=== PATIENT | male | born 1970 ===

== ENCOUNTER 2023-09-11 23:13 | Outpatient (CLI) | payer OTHER | END 2023-09-11 23:14 | disposition EMS.NT | LOC: EMS 23:13 | DX: R55 Syncope and collapse (principal); R51.9 Headache, unspecified ==

== ENCOUNTER 2023-09-14 09:04 | Outpatient (CLI) | payer BC ==
[2023-09-14 12:10] LABS: BASOPHILS % (AUTO) 0.3 %; EOSINOPHILS # (AUTO) 0.3 10^3/uL (0.0-0.7); EOSINOPHILS % (AUTO) 3.8 %; HCT - HEMATOCRIT 48.6 % (42.0-52.0); HGB - HEMOGLOBIN 15.9 g/dL (14.0-18.0); LYMPHOCYTES # (AUTO) 2.2 10^3/uL (1.5-3.5); LYMPHOCYTES % (AUTO) 33.9 %; MEAN CORPUSCULAR HEMOGLOBIN 30.6 pg (27.0-31.0); MEAN CORPUSCULAR HGB CONC 32.7 g/dL (32.0-36.0); MEAN CORPUSCULAR VOLUME 93.6 fL (80.0-94.0); MEAN PLATELET VOLUME 10.6 fL (7.4-11.4); MONOCYTES # (AUTO) 0.7 10^3/uL (0.0-1.0); MONOCYTES % (AUTO) 9.8 %; NEUTROPHILS # (AUTO) 3.4 10^3/uL (1.5-6.6); NEUTROPHILS % (AUTO) 51.7 %; PLT - PLATELET COUNT 281 10^3/uL (130-450); RED BLOOD COUNT 5.19 10^6/uL (4.70-6.10); RED CELL DISTRIBUTION WIDTH 12.7 % (12.0-15.0); WHITE BLOOD COUNT 6.6 x10^3/uL (4.8-10.8)
[2023-09-14 12:40] LABS: THYROID STIMULATING HORMONE 2.63 uIU/mL (0.34-5.60)
[2023-09-14 12:41] LABS: ALBUMIN 4.2 g/dL (3.2-5.5); ALBUMIN/GLOBULIN RATIO 1.6 (1.0-2.2); ALKALINE PHOSPHATASE 32 IU/L (42-121); ALT ALANINE AMINOTRANSFERASE 21 IU/L (10-60); AST ASPARTATE AMINOTRANSFERASE 18 IU/L (10-42); BILIRUBIN,TOTAL 0.6 mg/dL (0.2-1.0); BUN - BLOOD UREA NITROGEN 18 mg/dL (6-20); CALCIUM 9.5 mg/dL (8.5-10.3); CARBON DIOXIDE - CO2 26 mmol/L (21-32); CHLORIDE 107 mmol/L (101-111); CHOL/HDL RATIO 4.6 (<5.0); CHOLESTEROL 190 mg/dL; GFR - MDRD 78 (>89); GLUCOSE 93 mg/dL (74-104); HDL CHOLESTEROL 41 mg/dL; LDL CHOLESTEROL,CALCULATED 135 mg/dL; LDL/HDL RATIO 3.3 (<3.6); SODIUM 138 mmol/L (135-145); TOTAL PROTEIN 6.8 g/dL (6.4-8.9); TRIGLYCERIDES 72 mg/dL (48-352); VLDL CHOLESTEROL 14 mg/dL
== END 2023-09-14 09:05 | disposition home or self-care (01) ==
LOC: LAB.N 09:04
PROVIDERS: ATTEND Nurse Practitioner
DX: I10 Essential (primary) hypertension (principal); E66.9 Obesity, unspecified; Z13.220 Encounter for screening for lipoid disorders
CPT/HCPCS: 36415; 80053; 80061; 83721; 84443; 85025

== ENCOUNTER 2023-11-29 07:53 | Outpatient (CLI) | payer BC ==
--- NOTE | 2023-11-29 08:26 | CARDIAC PROCEDURE NOTE ---
Stress Test Report Service Date: 11/29/23 Service Time: 08:00 Ordering Provider: Magalie Shaw ARNP Indication for Test: Cardiac risk stratification after a single syncopal episode. Significant Medical History: Fred is referred for a treadmill stress echocardiogram today for cardiac risk stratification following a syncopal episode that occurred a couple of months back. 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 He had been in [place] doing a particularly stressful day of physical labor on a home that he is remodeling. During the drive back to [facility] he had dinner along the way, with food that he thought may have been questionable. Following return home and going to bed he arose a few hours later to attend to his barking dog. He went to the bathroom, felt normal while voiding, but on the way back to bed began to feel nauseous as if he might vomit and then suddenly passed out. Assistance was required from his and son to move him prior to evaluation by scroll saw operator, with return of consciousness within 20-30 seconds. He did hit his head, but denied any associated chest discomfort, and following in home EMT evalua tion, there was no strong recommendation for Emergency Department evaluation, so this was not pursued. He was seen by his primary provider, Ms. Shaw, who ordered a 14-day ambulatory rhythm monitor study that was completed recently. The results were essentially physiologic, with low level ectopy, two 3-beat atrial tachycardia runs and rare palpitations that corresponded with occasional PACs. Upon questioning today he reports that his does hear him snoring, though it is not described as severe and he is unaware of stopping breathing at night. He has not been screened for sleep apnea. A lipid panel in August 2023 revealed total cholesterol 190, LDLc 135, HDLc 41 and TG 72. Cardiac Risk Factors: Positive for hypertension, treated for 2 to 3 years; negative for diabetes, treated hyperlipidemia, tobacco smoking ever and family history of coronary artery disease. Type of Stress Test: ETT with Echocardiography Procedure: -Exercise Treadmill Test- After signing informed consent, the patient underwent echo imaging at rest and then performed treadmill exercise using a Fred protocol. The patient exercised for 8 minutes 20 seconds and achieved a peak heart rate of 171 (102 percent predicted maximum heart rate for age), and an estimated workload of 10.2 METS. The test was terminated due to fatigue/shortness of breath. Resting heart rate: 75 Peak heart rate: 171 Normal response to exercise. Resting BP: 127/73 Peak BP: 229/36 Hypertensive response of systolic BP, with exaggerated diastolic BP, decrease to exercise. Rhythm during exercise: Sinus rhythm throughout, with no PVCs recorded. Symptoms: Shortness of breath and leg burning became limiting; no report of nausea, chest pressure/discomfort/pain. EKG at rest showed normal sinus rhythm with borderline left axis deviation, with early precordial R/S transition; with normal ST/T pattern throughout. EKG at peak stress showed no ischemia by EKG criteria. In Recovery heart rate rapidly/normally decreased towards baseline, with near complete recovery of baseline BP (HR 105, BP 139/55 at 5:00). Echo imaging, performed at rest and with stress, is reported separately. Phi Deleon MD, was present throughout this treadmill stress study and supervised it in its entirety. Summary: 1) Exercise tolerance moderately reduced for age and sex as evidenced by JASON of 14%. 2) Normal resting EKG. 3) Adequate level of exercise was achieved on this treadmill stress test. 4) Hypertensive systolic BP response to exercise. 5) No ischemic changes by EKG criteria were seen at peak stress. 6) Echo image interpretation reveals normal left ventricular size, wall thickness and systolic function, with appropriate hyperdynamic augmentation of all segments with exercise, indicating no evidence of prior infarct or inducible ischemia. No significant valvular abnormality or elevation of estimated pulmonary artery systolic pressure seen on screening study. See separate report for more details. Conclusions and Recommendations: 1) Reassuring treadmill stress echocardiogram results with no symptom, EKG or echocardiographic evidence of inducible ischemia. 2) Considered with the results of his ambulatory EKG monitoring study there are no high risk features identified and the syncopal episode was likely vasovagal in origin. He was advised to sit down quickly if experiencing the same prodrome in the future. Formal Cardiology evaluation does not seem warranted. 3) Given his obesity, body habitus and hypertension history it would be appropriate for him to be screened for obstructive sleep apnea, to reduce long- term cardiovascular risk in the future. 4) Consider statin treatment for primary ASCVD risk reduction if formal risk calculation indicates 10-yr risk >10%.
== END 2023-11-29 07:54 | disposition home or self-care (01) ==
LOC: DI 07:53
PROVIDERS: ATTEND Nurse Practitioner
DX: R55 Syncope and collapse (principal); I10 Essential (primary) hypertension; E66.9 Obesity, unspecified
CPT/HCPCS: 93350